=== PATIENT | female | born 1990 | race Caucasian/White ===

== ENCOUNTER 2018-08-29 11:24 | Emergency (ER) | payer SELFPAY ==
[~2018-08-29] VITALS: Wt 90.0 kg
[2018-08-29 11:25] VITALS: BP 117/59; PULSE 88; RESP 18
[2018-08-29] MEDS ORDERED: ACET500C5 PO (12:58)
[2018-08-29] MEDS ORDERED: PROM5SYR2 PO (12:58)
[2018-08-29] MEDS ORDERED: BENZONATATE 100 MG CAP PO ONE (13:00)
--- NOTE | 2018-08-29 13:11 | ERD ---
ER Documentation Chief Complaint Chief Complaint COUGH,SORE THROAT X 2 WEEKS HPI 28-year-old female presents with complaint of cough and sore throat for the past 2 weeks. States she was taking Robitussin. Denies Difficulty swallowing, fevers, chills, chest pain, wheezing, respiratory distress. Denies trismus, dr gonzalez ROS All systems reviewed and are negative except as per history of present illness. Medications Home Meds Active Scripts Acetaminophen* (Tylophen*) 500 Mg Capsule, 2 CAP PO Q8H PRN for PAIN AND OR ELEVATED TEMP, #20 CAP Prov:YOEL LE 08/29/18 Promethazine HCl/Codeine (Prometh-Codein 6.25-10 mg/5 ml) 5 Ml Syrup, 5 ML PO Q4, #4 OZ Prov:OYEL LE 08/29/18 Allergies Allergies: Coded Allergies: No Known Allergy (Unverified , 08/29/18) PMhx/Soc Medical and Surgical Hx: pt denies Medical Hx, pt denies Surgical Hx Hx Alcohol Use: No Hx Substance Use: No Hx Tobacco Use: No Smoking Status: Never smoker FmHx Family History: No diabetes, No coronary disease, No other Physical Exam Vitals Vital Signs Date Temp Pulse Resp B/P (MAP) Pulse Ox O2 O2 Flow FiO2 Time Delivery Rate 08/29/18 98.1 88 18 117/59 99 11:25 (78) Physical Exam Const: No acute distress Head: Atraumatic Eyes: Normal Conjunctiva ENT: Normal External Ears, Nose and Mouth. Tonsils nonedematous erythematous bilaterally with no exudates. Uvula is midline. There are no peritonsillar masses noted. Neck: Full range of motion. No meningismus. Resp: Clear to auscultation bilaterally Cardio: Regular rate and rhythm, no murmurs Abd: Soft, non tender, non distended. Normal bowel sounds Skin: No petechiae or rashes Back: No midline or flank tenderness Ext: No cyanosis, or edema Neur: Awake and alert Psych: Normal Mood and Affect Results 24 hrs Current Medications Medications Dose Sig/Dixon Start Time Status Last (Trade) Ordered Route PRN Stop Time Admin Dose Reason Admin Benzonatate 200 mg ONCE ONCE 08/29/18 DC (Tessalon) PO 13:00 08/29/18 13:01 Procedures/MDM DM: I have low suspicion for strep throat based on history and exam findings, as well as patient not meeting centor criteria for rapid strep testing. I have low suspicion for bacterial sinusitis, pneumonia, tuberculosis, meningitis, pneumothorax, PE, aspirated foreign body, respiratory distress, acute heart failure or other life threatening etiology based on patient history and exam findings. Most likely etiology is viral URI and no further tests are necessary. Patient given rx for promethazine with codeine and acetaminophen patient given Tessalon Perls in the ER.. Patient advised to rest and stay well hydrated. Patient discharged with strict ER precautions. Patient advised to follow up with PMD. All questions answered at discharge. Departure Diagnosis: Primary Impression: Upper respiratory infection Condition: Stable Patient Instructions: Preventing Common Respiratory Infections, Uri, Viral, No Abx (Adult) Referrals: NO PRIMARY,CARE PHYSICIAN (PCP) Additional Instructions: FOLLOW UP WITH YOUR PRIMARY CARE PHYSICIAN TOMORROW.Return to this facility if you are not improving as expected. YOEL LE Aug 29, 2018 13:11
== END 2018-08-29 13:24 | disposition home or self-care (01) ==
LOC: FTE 11:24
DX: J06.9 Acute upper respiratory infection, unspecified (principal)
CPT/HCPCS: 99283